=== PATIENT | female | born 1990 | race Caucasian/White ===

== ENCOUNTER 2024-02-02 13:55 | Outpatient (CLI) | payer OTHER, SELFPAY ==
--- NOTE | 2024-02-02 14:00 | CRLHL7_ITS ---
For Patients: As a result of the Century Cures Act, medical imaging exams and procedure reports are released immediately into your electronic medical record. You may view this report before your referring provider. If you have questions, please contact your health care provider. INDICATION: Dating and viability COMPARISON: None TECHNIQUE: Garcia-scale and color Doppler of the gravid uterus and fetus from a transvaginal approach. Garcia-scale and color Doppler of the ovaries and adnexa from a transvaginal approach. Transvaginal ultrasound was necessary for better visualization of the uterine contents. FINDINGS: Last menstrual period: 12/02/2023 Estimated gestational age: 8 weeks 6 days FIRST TRIMESTER The uterus is retroverted. There is an intrauterine gestational sac that measures 37 x 27 x 28 mm for a mean sac diameter of 31 mm. This corresponds to a gestational age of 8 weeks 2 days. is a large irregular yolk sac that measures 1.4 centimeters with some irregular peripheral thickening that could be embryonic tissue. This tissue measures about 0.5 cm which would correspond to an estimated gestational age of 6 weeks and 1 day. No embryonic cardiac activity is identified. There is a robust decidual reaction with extensive cystic spaces. No discrete hemorrhage seen. MATERNAL The right ovary measures 2.7 x 2.3 x 1.3 cm. The left ovary measures 3.0 x 2.5 x 2.3 cm. Within the left ovary there is what appears to be a corpus luteum cyst that measures 2.0 x 1.9 x 1.7 cm. No findings of thecal lutein cysts. No pelvic free fluid. IMPRESSION: Appearance is consistent with a failed 1st trimester . Abnormal tissue around the gestational sac could potentially be a very large subacute perigestational hemorrhage, but the cystic appearance raises the possibility of gestational trophoblastic disease. Recommend correlation with serial beta HCG. Dictated by Amara Waterman MD @ 02/02/2024 3:14:42 PM (Electronically Signed)
== END 2024-02-02 13:56 | disposition home or self-care (01) ==
LOC: US 13:56
PROVIDERS: PCP Physician Assistant; Visit Provider Physician Assistant
DX: Z34.91 Encounter for supervision of normal pregnancy, unspecified, first trimester (principal); O35.9XX0 Maternal care for (suspected) fetal abnormality and damage, unspecified, not applicable or unspecified; Z3A.08 8 weeks gestation of pregnancy
CPT/HCPCS: 76817

== ENCOUNTER 2024-02-04 09:55 | Day surgery (SDC) | payer OTHER, SELFPAY ==
[2024-02-04 10:10] VITALS: BP 104/59; PULSE 76; RESP 16; TEMP 36.7; O2SAT 100; BMI 22.8
[2024-02-04] MEDS: SODIUM CHLORIDE 0.9 % (FLUSH) 10 ML SYRINGE IVF (10:19)
[2024-02-04] MEDS: DOXYCYCLINE HYCLATE 100 MG 200 MG PO (10:19)
[2024-02-04] MEDS: BUPIVACAINE 0.5% 30 ML INJECTION (12:33)
[2024-02-04 12:45] VITALS: BP 112/74; PULSE 69; RESP 16; TEMP 36.6; O2SAT 96
--- NOTE | 2024-02-04 12:46 | W.ANESCHARGE ---
Anesthesia Charges Start Date/Time Anesthesia Start Date: 02/04/24 Anesthesia Start Time: 12:13 Stop Date/Time Anesthesia Stop Date: 02/04/24 Anesthesia Stop Time: 12:49
--- NOTE | 2024-02-04 12:47 | W.ANESCHARGE ---
Anesthesia Charges Start Date/Time Anesthesia Start Date: 02/04/24 Anesthesia Start Time: 12:13 Stop Date/Time Anesthesia Stop Date: 02/04/24 Anesthesia Stop Time: 12:49
--- NOTE | 2024-02-04 12:58 | W.PM.H&PU ---
History & Physical Update History & Physical Update H&P Reviewed and patient assessed: No changes noted
--- NOTE | 2024-02-04 12:59 | P.PCN_ITS ---
Procedure Note Time Seen by Provider: 12:59 Date Seen: 02/04/24 Date of procedure: 02/04/24 Will [facility] bill your pro fee for this procedure?: Yes Procedure: Preoperative diagnosis: Opal is a 33-year-old 3 para 1011 with a missed at 6 and 1/7 weeks gestation by ultrasound. Postoperative diagnosis: Same Procedure: Suction curettage Anesthesia: Conscious sedation, paracervical block Surgeon: Yuliya Dempsey MD Spectrograph Operator: Not applicable IV fluid: 0 mL Estimated blood loss: 5 mL Urine output: 100 mL Specimen: Products of conception to pathology Findings: On exam under anesthesia: the uterus was approximately 8 weeks size, retroverted position. Cervical os was closed without active bleeding. Adnexa were without mass or fullness palpable. The uterus sounded to 10 cm. On suction curettage there was a moderate amount of products of conception. Procedure: Opal was taken to the operating room where conscious sedation was found to be adequate. She was placed in the dorsal lithotomy position and an exam under anesthesia was performed with with findings stated above. She was then prepped and draped in normal sterile manner. A bivalve speculum was placed in the vagina to visualize the cervix. A paracervical block was placed using 0.5% Marcaine: 10 mL injected at the 4 and 8 o'clock positions on the cervix. The her anterior lip of the cervix was grasped with a long Allis clamp. The cervix was dilated to Hegar # Garcia 10 a. A # 10 curved curette was then advanced into the uterus without difficulty. A suction curettage was then performed using 50 mmHg pressure. For passes with the curette were performed to remove all visualized tissue. The curette was removed and mild, sharp curettage was performed to verify that all of the products of conception had been removed. One last pass with the curved curette was then made to verify that all of the tissue had been removed. The Allis clamp was removed from the anterior lip of the cervix. Nothing was needed to obtain hemostasis. Excellent hemostasis was noted. The speculum was then removed from the vagina. The patient tolerated this procedure well. Sponge, lap and instrument counts were correct x2 the end of the procedure. The patient was awakened from sedation and taken to the recovery area in stable condition. Anesthesia: MAC and local Estimated blood loss (mL): 5 Pathology: specimen obtained, sent to pathology Condition: stable Disposition: same day
[2024-02-04 13:00] VITALS: BP 95/58; PULSE 61; RESP 16; O2SAT 99
[2024-02-04 13:15] VITALS: BP 97/60; PULSE 72; RESP 16; O2SAT 99
[2024-02-04 13:30] VITALS: BP 98/60; PULSE 70; RESP 16; O2SAT 99
== END 2024-02-04 13:38 | disposition home or self-care (01) ==
PROVIDERS: PCP Physician Assistant; Visit Provider Obstetrics & Gynecology
PROC: (CPT 59820; principal; 2024-02-04 11:15)
DX: O02.1 Missed abortion (principal); Z3A.01 Less than 8 weeks gestation of pregnancy
CPT/HCPCS: 59820; 00940; 01965; 36415; 86850; 86900; 86901; 88271; 88274; 88305; A9270; J0665; J1100; J2250; J2405; J2704; J3010

== ENCOUNTER 2024-04-19 13:20 | Outpatient (CLI) | payer OTHER, SELFPAY | END 2024-04-19 13:21 | disposition home or self-care (01) | LOC: LKVREF 13:22 | PROVIDERS: PCP Physician Assistant; Visit Provider Obstetrics & Gynecology | DX: O20.9 Hemorrhage in early pregnancy, unspecified (principal) | CPT/HCPCS: 84702 ==

== ENCOUNTER 2024-04-21 12:23 | Outpatient (CLI) | payer OTHER, SELFPAY ==
--- NOTE | 2024-04-21 12:15 | CRLHL7_ITS ---
Patient: CORTNEY AGUDELO Facility:?[facility] Patient ID:?[id number] Site Patient ID:?[id number]. Site :?[id number] Study:?US-OB Pelvis OB TV-04/21/2024 1:23:08 PM Ordering Physician:?Kaela Silva Final Report: INDICATION: COMPARISON: Obstetric ultrasound on February 02, 2024 TECHNIQUE: Garcia-scale and color Doppler ultrasound of the uterus and ovaries from a transabdominal and transvaginal approach. Transvaginal ultrasound of the pelvis was performed to better visualize the genitourinary organs, such as the ovaries and/or endometrium. Color-flow and spectral Doppler imaging of both ovaries is performed. FINDINGS: There is an ill-defined region of heterogeneity seen in the myometrium to the left of midline near the uterine fundus measuring approximately 3.3 x 2.7 x 3.1 centimeters, in close proximity to/contiguous with the endometrium, that contains trace blood flow on color Doppler. The cervix is normal. The bilateral ovaries are unremarkable. No suspicious adnexal masses/lesions. Trace free fluid in the posterior cul-de-sac, likely physiologic. IMPRESSION: 1. Ill-defined region of heterogeneity seen in the myometrium to the left of midline near the uterine fundus measuring approximately 3.3 x 2.7 x 3.1 centimeters, in close proximity to/contiguous with the endometrium, may be sequela of prior D&C versus retained products of conception. 2. The bilateral ovaries are unremarkable in appearance. Dictated by Martin Bauer MD @ 04/21/2024 1:40:07 PM Signed by:?Martin Bauer MD @04/21/2024 1:40:07 PM (Electronic Signature)
== END 2024-04-21 12:24 | disposition home or self-care (01) ==
PROVIDERS: PCP Physician Assistant; Visit Provider Obstetrics & Gynecology
DX: Z34.90 Encounter for supervision of normal pregnancy, unspecified, unspecified trimester (principal)
CPT/HCPCS: 76817; 84702

== ENCOUNTER 2024-04-27 08:00 | Outpatient (CLI) | payer OTHER, SELFPAY ==
--- NOTE | 2024-04-27 08:15 | MR_ITS ---
Patient: CORTNEY AGUDELO Facility:?[facility] Patient ID:?[id number] Site Patient ID:?[id number]. Site :?[id number] Study:?MRI-Pelvis W/ and W/O Cont 15 CC DOTAREM-04/27/2024 9:37:38 AM Ordering Physician:?Braydon Coreas Final Report: INDICATION: Irregular bleeding following D&C; miscarriage. COMPARISON: Pelvic ultrasound 02/02/2024 and April 21, 2024. TECHNIQUE: MR of the pelvis without and with intravenous contrast; precontrast T1 and T2 weighted imaging; T2 haste imaging; diffusion-weighted imaging; postcontrast imaging and axial, coronal and sagittal projections; 15 cc of dotarem contrast was injected. FINDINGS: A 3.8 x 3 cm complex predominantly cystic lesion identified just to the left of the midline in the uterus. The pattern is most consistent with either an ectopic gestation within the left cornu or retained products of conception within the left cornu in a bicornuate uterus. No adnexal pathology. No free fluid identified in the pelvic cul-de-sac. No abnormal pelvic lymphadenopathy. 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
== END 2024-04-27 08:01 | disposition home or self-care (01) ==
LOC: MRI 08:00
PROVIDERS: PCP Physician Assistant; Visit Provider Obstetrics & Gynecology
DX: N85.9 Noninflammatory disorder of uterus, unspecified (principal); N85.8 Other specified noninflammatory disorders of uterus; O02.1 Missed abortion
CPT/HCPCS: 72197; 80053; 84443; 84702; A9575

== ENCOUNTER 2024-04-27 09:52 | Outpatient (CLI) | payer OTHER, SELFPAY | END 2024-04-27 09:53 | disposition home or self-care (01) | PROVIDERS: PCP Obstetrics & Gynecology; Visit Provider Obstetrics & Gynecology | DX: N85.9 Noninflammatory disorder of uterus, unspecified (principal); O02.1 Missed abortion | CPT/HCPCS: 80053; 84443; 84702 ==

== ENCOUNTER 2024-04-30 08:03 | Outpatient (CLI) | payer OTHER, SELFPAY | END 2024-04-30 08:04 | disposition home or self-care (01) | PROVIDERS: PCP Physician Assistant; Visit Provider Obstetrics & Gynecology | DX: N85.9 Noninflammatory disorder of uterus, unspecified (principal); O02.1 Missed abortion | CPT/HCPCS: 82565; 84450; 84460; 84702; J9260 ==

== ENCOUNTER 2024-05-03 10:16 | Outpatient (CLI) | payer OTHER, SELFPAY | END 2024-05-03 10:17 | disposition home or self-care (01) | LOC: NFLDREF 05-05 01:19 | PROVIDERS: PCP Physician Assistant; Referring Provider Physician Assistant; Visit Provider Obstetrics & Gynecology | DX: O00.90 Unspecified ectopic pregnancy without intrauterine pregnancy (principal) | CPT/HCPCS: 84702 ==

== ENCOUNTER 2024-05-06 13:51 | Outpatient (CLI) | payer OTHER, SELFPAY | END 2024-05-06 13:52 | disposition home or self-care (01) | LOC: NFLDREF 13:53 | PROVIDERS: PCP Physician Assistant; Visit Provider Obstetrics & Gynecology | DX: O00.80 Other ectopic pregnancy without intrauterine pregnancy (principal) | CPT/HCPCS: 82565; 82746; 84450; 84460; 84520; 84702; 86900; 86901 ==

== ENCOUNTER 2024-05-10 16:51 | Outpatient (CLI) | payer OTHER, SELFPAY ==
--- NOTE | 2024-05-10 16:45 | CRLHL7_ITS ---
For Patients: As a result of the Century Cures Act, medical imaging exams and procedure reports are released immediately into your electronic medical record. You may view this report before your referring provider. If you have questions, please contact your health care provider. INDICATION: Miscarriage COMPARISON: MRI 04/27/2024 TECHNIQUE: 2D wiley scale and color Doppler images were acquired of the pelvis using a transabdominal and transvaginal approach. FINDINGS: Sonographic images demonstrate a normal size and smooth outer contour of the uterus. Uterus measures 7.8 cm in length by 4.5 cm in AP diameter by 5.4 cm in transverse dimension. The myometrium has a normal uniform echotexture. Endometrial thickness 4 millimeters. No endometrial fluid. No retained products. Interval clearing of previously noted structure within the left side a bicornuate uterus. The right ovary measures 3.1 x 1.5 x 1.9 cm in size and the left ovary measures 3.0 x 1.8 x 2.4 cm. The ovaries demonstrate normal arterial and venous blood flow on color Doppler analysis. There are no suspicious fluid collections within the cul-de-sac. IMPRESSION: No retained products. Dictated by Octaviano Allen MD @ 05/10/2024 6:41:40 PM (Electronically Signed)
== END 2024-05-10 16:52 | disposition home or self-care (01) ==
LOC: US 16:51
PROVIDERS: PCP Physician Assistant; Visit Provider Obstetrics & Gynecology
DX: O00.80 Other ectopic pregnancy without intrauterine pregnancy (principal)
CPT/HCPCS: 76830; 76856

== ENCOUNTER 2025-02-14 14:03 | Outpatient (CLI) | payer OTHER, SELFPAY | END 2025-02-14 14:04 | disposition home or self-care (01) | LOC: NFLDREF 02-24 01:49 | PROVIDERS: PCP Physician Assistant; Referring Provider Physician Assistant; Visit Provider Obstetrics & Gynecology | DX: Z31.69 Encounter for other general counseling and advice on procreation (principal) | CPT/HCPCS: 83520; 84144 ==

== ENCOUNTER 2025-03-11 11:52 | Outpatient (CLI) | payer OTHER, SELFPAY | END 2025-03-11 11:53 | disposition home or self-care (01) | LOC: NFLDREF 03-17 01:28 | PROVIDERS: PCP Physician Assistant; Referring Provider Physician Assistant; Visit Provider Obstetrics & Gynecology | DX: N97.0 Female infertility associated with anovulation (principal) | CPT/HCPCS: 84144 ==